=== PATIENT | male | born 1995 | race African-American/Black ===

== ENCOUNTER 2017-02-22 12:51 | Observation (INO) ==
[2017-02-22] MEDS ORDERED: methylPREDNISolone SOD SUC 125 MG/2 ML VIAL IV STA (13:54)
[2017-02-22] MEDS ORDERED: ALBUTEROL/IPRATROPIUM 3 ML NEB RESP TX STA (13:54)
[2017-02-22] MEDS ORDERED: methylPREDNISolone SOD SUC 125 MG/2 ML VIAL ONE (14:05)
[2017-02-22 14:11] LABS: Basophils % 0.1 % (0.0-0.8); Hematocrit 49.6 VOL% (42.0-52.0); Hemoglobin 16.4 GM/DL (14.0-18.0); Immature Granulocytes % 0.7 %; Lymphocytes # 0.9 10*3/uL (1.4-4.0); Lymphocytes % 6.5 % (21.2-54.2); Mean Corpuscular HGB Conc 33.1 GM/DL (32-36); Mean Corpuscular Hemoglobin 29 PG (27-34); Mean Corpuscular Volume 86.1 FL (87-102); Mean Platelet Volume 10.7 FL (9.6-12.0); Monocytes # 0.2 10*3/uL (0.11-0.8); Monocytes % 1.4 % (1.7-12.7); Neutrophils # 12.4 10*3/uL (1.4-7.4); Neutrophils % 91.3 % (38.7-73.9); Platelet Count 234 T/CUMM (130-400); Red Blood Count 5.76 MC/CUMM (3.8-5.5); Red Cell Distribution Width 13.8 % (9.3-17.3); White Blood Count 13.6 T/CUMM (4-12)
--- NOTE | 2017-02-22 14:23 | XRay Report ---
Portable chest. Indication: Shortness of breath. Dyspnea. Comparison: October 20, 2015. The heart is normal in size. The mediastinal contours are unremarkable. There are bilateral basilar infiltrates present, predominantly interstitial. No pneumothorax. No pleural effusion. No bony abnormality. Impression: Bilateral basilar interstitial infiltrates. PROCEDURE INTERPRETED AT [facility] DEPARTMENT OF RADIOLOGY Final Report Signed by: Dr. Arline Ingram
[2017-02-22 14:28] LABS: Osmolality,Calculated 277.4 MOS/KG (273-304)
[2017-02-22] MEDS ORDERED: cefTRIAXone 1,000 MG in SODIUM CHLORIDE 0.9% 100 ML IV STA (14:29)
--- NOTE | 2017-02-22 14:31 | Emergency Department Note ---
Arrival - Arrival Chief Complaint: Shortness of Breath Stated Complaint: Asthma Attack ED Nursing Triage Note: Cough and congestion with wheezing onset yesterday - pt states that he was seen last night and this am at [facility] and was given steroids and breathing tx - Mode of Arrival: Ambulatory Limitations: No Limitations Source: Patient Time Seen by Provider: 02/22/17 13:54 - History of Present Illness HPI Narrative: The patient complains of wheezing, cough and shortness of breath that started yesterday around 10:00. He was seen at [place] emergency room last night and given nebs and steroids. He improved but worsened again this morning and returned to [place] emergency room where he again received nebs and steroids. He improved again for short time but worsened again and presented here. He apparently got some prescriptions on 1 of the earlier visits but did not get them filled. He denies any fever, rhinorrhea, sore throat or other symptoms. He does have a history of asthma. Allergies/Adverse Reactions: Allergies Allergy/AdvReac Type Severity Reaction Status Date / Time No Known Allergies Allergy Verified 02/15/16 16:09 Home Medications: Home Medications Medication Instructions Recorded Confirmed Type Albuterol Sulfate [Albuterol 2 puffs IH Q4H PRN #1 hfa.aer.[email or web address] 06/28/15 02/15/16 Rx Inhaler] Albuterol Neb [Proventil Neb] 2.5 mg RESP TX Q6H PRN #30 neb 01/31/16 02/15/16 Rx Unable To Obtain 02/22/17 History Review of System - Review of System 12 point system: reviewed and no additional remarkable complaints except as stated - Review of System Constitutional: Absent: fever Head/Ears/Nose/Throat: Absent: nasal drainage, sore throat Respiratory: Present: cough (Clear sputum), respiratory distress, wheezing Cardiovascular: Absent: chest pain Gastrointestinal: Absent: abdominal pain, nausea, vomiting Medical,Surgical,& Family Hx - Medical History Cardio: No history of: Hypertension Psychological: History of: Anxiety Disorders, Depression, Schizophrenia No history of: Previous Suicide Attempt Neurology: History of: TIA Endocrine: No history of: Diabetes Mellitus (IDDM), Diabetes Mellitus (NIDDM) Respiratory: History of: Asthma Renal: No history of: Renal Problems Gastrointestinal: History of: GERD No history of: Gastrointestinal Bleed, Liver Problems, GI Problems Musculoskeletal: History of: Musculoskeletal Problems (Right hand fracture x2) - Surgical History HEENT Surgeries: Patient denies: Tonsilectomy & Adenoidectomy (Polyps removed from sinuses) Orthopedic Surgeries: Surgical HX of;: Orthopedic Surgery (Right hand) - Family History Family History: Reports;: Family Cancer (Grandma breast cancer), Family Heart Disease (father), Family Hypertension (father) - Social History Smoking Status: Smoker, status unknown Frequency of Alcohol Use: Occasionally Type of Drug Use: None Exam Physical Examination: GENERAL: Alert. No acute distress. HEENT: Normocephalic and atraumatic. There is no nasal drainage. No pharyngeal erythema or exudate. NECK: Normal inspection. Supple. No lymphadenopathy or meningismus. LUNGS: No respiratory distress. Decreased air movement with heavy wheezing bilaterally. HEART: Regular rate and rhythm. ABDOMEN: Soft, nontender and nondistended with normoactive bowel sounds. BACK: Normal inspection. SKIN: Color normal. Warm and dry. EXTREMITIES: Nontender. Normal range of motion. No pedal edema. NEUROLOGICAL/PSYCHIATRIC: Alert and oriented -3 with normal mood and affect. Cranial nerves normal. No motor or sensory deficit. Vital Signs: Vital Signs Temperature 99.2 F 02/22/17 14:18 Pulse Rate 105 H 02/22/17 14:18 Respiratory Rate 20 02/22/17 14:18 Blood Pressure 132/102 02/22/17 14:18 O2 Sat by Pulse Oximetry 92 L 02/22/17 13:21 Course - Reevaluation(s) Reevaluation #1: I have discussed the patient with the hospitalist service who will see him in the ER and admit. Time: 14:32 Results - Labs CBC & BMP: 02/22/17 13:54 02/22/17 13:54 Lab Results: I have reviewed the patients labs - Impressions Chest x-ray shows bibasilar interstitial infiltrates. Disposition Clinical Impression: Community acquired pneumonia, Asthma with exacerbation Case discussed with: patient Disposition: Still a Patient Condition: Stable Time of Disposition: 14:33
[2017-02-22 15:06] LABS: Lymphocytes 9 % (20-55); Platelet Estimate Adequate; Segmented Neutrophils 90 % (50-85)
[2017-02-22 15:07] LABS: Total Cells Counted 100
[2017-02-22] MEDS ORDERED: ACETAMINOPHEN 325 MG TABLET PO PRN (15:11)
[2017-02-22] MEDS ORDERED: ONDANSETRON 4 MG/2 ML VIAL IV PRN (15:11)
[2017-02-22] MEDS ORDERED: DOCUSATE SODIUM 100 MG CAPSULE PO PRN (15:11)
--- NOTE | 2017-02-22 15:12 | Hospitalist History & Physical ---
<Franky Vega - Last Filed: 02/22/17 15:20> Assessment and Plan (1) Acute severe exacerbation of asthma Status: Acute Assessment and plan: Admit patient. Breathing treatments. IV steroids. Supplemental O2. IV antibiotics (Azithromycin). Current Visit: No History of Present Illness History of present illness: Mr. Caballero is a 21 year old male with a history of asthma that presents to the ED today with complaints of shortness of breath and wheezing. Pt. states that he started having problems yesterday. This morning around 5 am he went to [place] emergency room where he received steroids and breathing treatments before he was released. He reported back to [place] again, received treatment and was released. Pt. reported here after having a third episode. Pt. denies fever, chills, chest pain or any other symptoms at this time. Pt. reports smoking cigarettes but denies drug or alcohol use/abuse. Pt. reports working at a [employer]. Pt. will be admitted to the hospitalist program for treatment. Home Medications Medication Instructions Recorded Confirmed Type Unable To Obtain 02/22/17 History Allergies Allergy/AdvReac Type Severity Reaction Status Date / Time No Known Allergies Allergy Verified 02/15/16 16:09 - Constitutional Constitutional: Absent: chills, fever(s) - EENT Eyes: Absent: blurry vision, loss of vision Nose, mouth and throat: Absent: dysphagia, headache(s) - Gastrointestinal Gastrointestinal: Absent: abdominal pain, nausea, vomiting - Genitourinary Genitourinary: Absent: difficulty urinating, hematuria - Musculoskeletal Musculoskeletal: Absent: back pain, limited range of motion - Neurological Neurological: Absent: confusion, frequent falls - Psychiatric Psychiatric: Present: anxiety. Absent: confusion - Endocrine Endocrine: Present: cold intolerance. Absent: polyuria - Hematologic/Lymphatic Hematologic/Lymphatic: Absent: easy bleeding, easy bruising Exam - Constitutional Vitals: Period Temp Pulse Resp BP Sys/Ozuna Pulse Ox Last 24 Hr 99.2 F-99.2 F 70-105 20-21 132-132/102-102 92 General appearance: normal weight, mild distress - Head Head exam: Present: normal inspection, normocephalic - Eye Eye exam: Present: EOMI. Absent: periorbital swelling Pupils: Present: KIM, normal accommodation - ENT ENT exam: Present: normal exam, normal external ear exam - Neck Neck exam: Present: normal inspection. Absent: thyromegaly - Respiratory Respiratory exam: Present: decreased breath sounds, wheezes - Cardiovascular Cardiovascular exam: Present: regular rate and rhythm. Absent: systolic murmur - GI/Abdominal GI/Abdominal exam: Present: normal bowel sounds. Absent: tenderness - Extremities Exam Extremities exam: Present: normal inspection, normal capillary refill - Neurological Exam Neurological exam: Present: alert, oriented X3 - Psychiatric Psychiatric exam: Present: normal affect, normal mood - Skin Skin exam: Present: normal color, warm, dry Results - Labs CBC & BMP: 02/22/17 13:54 02/22/17 13:54 Lab Results: I have reviewed the past 24 hour labs <Juana Ayers - Last Filed: 02/23/17 08:17> Assessment and Plan (1) Severe persistent asthma with acute exacerbation Status: Resolved Assessment and plan: singular, solumedrol, albuterol Current Visit: No (2) Acute bronchitis Status: Acute Assessment and plan: azithromycin IV Current Visit: No History of Present Illness Chief complaint: sob History of present illness: Mr. Caballero is a 21 year old male with a history of asthma reports wheezing, cough and shortness of breath that started yesterday around 10:00. He was seen at [place] emergency room twice then and release. Patient smokes and works at a [employer]. Medical,Surgical,& Family Hx - Medical History Cardio: No history of: Hypertension Psychological: History of: Anxiety Disorders, Depression, Schizophrenia No history of: Previous Suicide Attempt Neurology: History of: TIA Endocrine: No history of: Diabetes Mellitus (IDDM), Diabetes Mellitus (NIDDM) Respiratory: History of: Asthma Renal: No history of: Renal Problems Gastrointestinal: History of: GERD No history of: Gastrointestinal Bleed, Liver Problems, GI Problems Musculoskeletal: History of: Musculoskeletal Problems (Right hand fracture x2) - Surgical History HEENT Surgeries: Patient denies: Tonsilectomy & Adenoidectomy (Polyps removed from sinuses) Orthopedic Surgeries: Surgical HX of;: Orthopedic Surgery (Right hand) - Family History Family History: Reports;: Family Cancer (Grandma breast cancer), Family Heart Disease (father), Family Hypertension (father) - Social History Smoking Status: Smoker, status unknown Frequency of Alcohol Use: Occasionally Type of Drug Use: None Marital Status: Single Lives With:: Sibling Functional capacity: independent ambulation - Cardiovascular Cardiovascular: Present: dyspnea, dyspnea on exertion. Absent: chest pain at rest, chest pain with activity, edema - Respiratory Respiratory: Present: cough, dyspnea, dyspnea on exertion, wheezing Exam - Constitutional Vitals: Period Temp Pulse Resp BP Sys/Ozuna Pulse Ox Last 24 Hr 99.2 F-99.2 F 70-105 20-21 132-132/102-102 92 General appearance: normal weight, mild distress - Head Head exam: Present: normal inspection, normocephalic - Eye Eye exam: Present: EOMI. Absent: scleral icterus Pupils: Present: KIM, normal accommodation - ENT ENT exam: Present: normal exam, normal external ear exam - Neck Neck exam: Absent: lymphadenopathy, thyromegaly - Respiratory Respiratory exam: Present: decreased breath sounds, wheezes. Absent: rhonchi - Cardiovascular Cardiovascular exam: Present: regular rate and rhythm. Absent: systolic murmur - GI/Abdominal GI/Abdominal exam: Present: normal bowel sounds, soft. Absent: tenderness - Extremities Exam Extremities exam: Present: normal inspection, normal capillary refill - Neurological Exam Neurological exam: Present: alert, oriented X3, CN II-XII intact, reflexes normal. Absent: motor sensory deficit - Psychiatric Psychiatric exam: Present: normal affect, normal mood - Skin Skin exam: Present: normal color, warm Results - Labs CBC & BMP: 02/23/17 02:19 02/23/17 02:19 Lab Results: I have reviewed the past 24 hour labs - Diagnostic Findings Procedure: Chest x-ray: report reviewed by me (bilateral basilar infiltrate)
[2017-02-22] MEDS ORDERED: cefTRIAXone 1,000 MG VIAL ONE (15:28)
[2017-02-22] MEDS ORDERED: AZITHROMYCIN INJ 500 MG in SODIUM CHLORIDE 0.9% 250 ML IV SCH (15:30)
[2017-02-22] MEDS ORDERED: ALBUTEROL 1.25 MG/3 ML NEB RESP TX ONE (15:37)
[2017-02-22] MEDS ORDERED: ALBUTEROL 2.5 MG/3 ML NEB RESP TX SCH ×2 (17:00)
[2017-02-22] MEDS: NICOTINE 21 MG/24 HR PATCH TRANSDERM SCH (17:00)
[2017-02-22] MEDS ORDERED: ALBUTEROL 2.5 MG/3 ML NEB RESP TX PRN (17:02)
[2017-02-22] MEDS: ALBUTEROL 2.5 MG/3 ML NEB RESP TX SCH ×3 (19:07→23:35)
[2017-02-22] MEDS: SODIUM CHLORIDE 0.9% 1,000 ML IV SCH (19:39)
[2017-02-22] MEDS: methylPREDNISolone SOD SUC 125 MG/2 ML VIAL IV SCH (20:32)
[2017-02-22] MEDS: FLUTICASONE/SALMETEROL 500-50 DISKUS 14 DOSE INH SCH (20:33)
[2017-02-22] MEDS ORDERED: MONTELUKAST 10 MG TABLET PO SCH (21:00)
[2017-02-23] MEDS: methylPREDNISolone SOD SUC 125 MG/2 ML VIAL IV SCH ×2 (01:25→09:26)
[2017-02-23] MEDS: SODIUM CHLORIDE 0.9% 1,000 ML IV SCH (03:14)
[2017-02-23] MEDS: ALBUTEROL 2.5 MG/3 ML NEB RESP TX SCH ×3 (03:15→10:22)
[2017-02-23 04:30] LABS: Basophils % 0.1 % (0.0-0.8); Hemoglobin 13.7 GM/DL (14.0-18.0); Immature Granulocytes % 0.9 %; Immature Granulocytes Absolute 0.14 #; Lymphocytes # 1.1 10*3/uL (1.4-4.0); Lymphocytes % 6.4 % (21.2-54.2); Mean Corpuscular HGB Conc 32.6 GM/DL (32-36); Mean Corpuscular Hemoglobin 28 PG (27-34); Mean Corpuscular Volume 86.8 FL (87-102); Mean Platelet Volume 11.3 FL (9.6-12.0); Monocytes # 0.8 10*3/uL (0.11-0.8); Monocytes % 4.6 % (1.7-12.7); Neutrophils # 14.4 10*3/uL (1.4-7.4); Platelet Count 210 T/CUMM (130-400); Red Blood Count 4.84 MC/CUMM (3.8-5.5); Red Cell Distribution Width 14.1 % (9.3-17.3); White Blood Count 16.4 T/CUMM (4-12)
[2017-02-23 05:09] LABS: Calcium 8.7 MG/DL (8.5-10.1); Osmolality,Calculated 283.1 MOS/KG (273-304); Potassium 3.8 MMOL/L (3.5-5.1); Risk Ratio 1.56; Thyroid Stimulating Hormone 0.221 uIU/ml (0.358-3.74); VLDL CHOLESTEROL 3.8 MG/DL
[2017-02-23 08:00] VITALS: BP 134/52
--- NOTE | 2017-02-23 08:47 | Discharge Summary ---
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 The patient is a current smoker and reported that he had been seen twice in the emergency room at [place] and received breathing treatments and steroids was released. Chest x-ray performed showed bibasilar infiltrates, but clinically symptoms are more consistent with bronchitis. The patient was admitted to the hospitalist service for further evaluation and treatment. Patient was treated with breathing treatments, IV steroids (Solu-Medrol), and IV antibiotics (Azithromycin). Patient's vital signs are stable this a.m. patient elevated white blood count but this is quite possibly secondary to steroid usage. Patient counseled to stop smoking Patient will be released today and instructed to follow up with primary MD. Diagnosis - Discharge Diagnosis (1) Acute severe exacerbation of asthma Status: Acute Discharge Plan - Discharge Data Disposition: Disch To Home/Self Care - Discharge Medications New Albuterol Inhaler [Proventil Inhaler] 2 puff INH Q4H PRN #1 inhaler PRN Reason: Shortness Of Breath/Wheezing Azithromycin Tab [Zithromax Tab] 500 mg PO DAILY #10 tablet Fluticasone/Salmeterol 500-50 [Advair 500-50] 1 puff INH BID #1 puff Montelukast Tab [Singulair Tab] 10 mg PO DAILY #30 tablet predniSONE TAB [PredniSONE] 20 mg PO BID #40 tablet Albuterol Neb [Proventil Neb] 2.5 mg RESP TX RT Q4H #120 vial Discontinued Unable To Obtain - Follow Up or Referral Follow Up: pmd, [Other] - 1 Week - Forms/Instructions Exam - Constitutional Vitals: Period Temp Pulse Resp BP Sys/Ozuna Pulse Ox Last 24 Hr 97.4 F-99.2 F 70-116 17-30 113-175/52-102 92-100 Discharge Results Procedures and tests throughout hospitalization: Pending Orders 02/22/17 15:00 Blood Culture Stat 02/22/17 15:12 Urinalysis Stat Labs on day of discharge: Labs from last 24 hours 02/23/17 02/23/17 02/23/17 02:19 02:19 02:19 WBC 16.4 H RBC 4.84 Hgb 13.7 L D Hct 42.0 MCV 86.8 L MCH 28 MCHC 32.6 RDW 14.1 Plt Count 210 MPV 11.3 Neut % (Auto) 88.0 H Lymph % (Auto) 6.4 L [place] % (Auto) 4.6 Eos % (Auto) 0.0 Baso % (Auto) 0.1 Neut # (Auto) 14.4 H Lymph # (Auto) 1.1 L [place] # (Auto) 0.8 Eos # (Auto) 0.0 Baso # (Auto) 0.0 Total Counted Immature Gran % 0.9 Nucleated RBC % 0.0 Immature Gran # 0.14 Segmented Neutrophils Lymphocytes Monocytes Nucleated RBCs # 0.00 Platelet Estimate Sodium 142 Potassium 3.8 Chloride 107 Carbon Dioxide 23 Anion Gap 15.8 H BUN 12 Creatinine 0.90 GFR Calculation 143 BUN/Creatinine Ratio 13.00 Glucose 110 H Calculated Osmolality 283.1 Lactic Acid Calcium 8.7 Triglycerides 19 Cholesterol 97 LDL Cholesterol 35.0 VLDL Cholesterol 3.8 HDL Cholesterol 62 H Heart Disease Risk Ratio 1.56 Free T4 0.97 TSH 3rd Generation 0.221 L 02/22/17 02/22/17 02/22/17 15:00 13:54 13:54 WBC 13.6 H RBC 5.76 H Hgb 16.4 Hct 49.6 MCV 86.1 L MCH 29 MCHC 33.1 RDW 13.8 Plt Count 234 MPV 10.7 Neut % (Auto) 91.3 H Lymph % (Auto) 6.5 L [place] % (Auto) 1.4 L Eos % (Auto) 0.0 Baso % (Auto) 0.1 Neut # (Auto) 12.4 H Lymph # (Auto) 0.9 L [place] # (Auto) 0.2 Eos # (Auto) 0.0 Baso # (Auto) 0.0 Total Counted 100 Immature Gran % 0.7 Nucleated RBC % 0.0 Immature Gran # 0.10 Segmented Neutrophils 90 H Lymphocytes 9 L Monocytes 1 L Nucleated RBCs # 0.00 Platelet Estimate Adequate Sodium 140 Potassium 4.0 Chloride 106 Carbon Dioxide 22 Anion Gap 16.0 H BUN 8 Creatinine 1.10 GFR Calculation 113 BUN/Creatinine Ratio 7.00 Glucose 120 H Calculated Osmolality 277.4 Lactic Acid 3.9 H Calcium 10.0 Triglycerides Cholesterol LDL Cholesterol VLDL Cholesterol HDL Cholesterol Heart Disease Risk Ratio Free T4 TSH 3rd Generation DS: Provider Date of admission: 02/22/17 14:36 Primary care physician: . No PCP Attending physician on admission: Juana Ayers MD Discharging clinician: Franky Vega NP <Juana Ayers - Last Filed: 02/23/17 10:33> Hospital Course - Time spent with patient Time with patient DS: Less than 30 minutes (25 min) Diagnosis - Discharge Diagnosis (1) Severe persistent asthma with acute exacerbation Status: Resolved (2) Acute bronchitis Status: Acute Discharge Plan - Discharge Data Condition at Discharge: Stable Discharge Diet: regular diet Activity: resume usual activities as tolerated Hygiene: no restrictions Weight Bearing at Discharge: full weight bearing Driving: no restrictions - Forms/Instructions Additional Discharge Instructions: need to stop smoking for at least one week Exam - Constitutional General appearance: normal weight, no acute distress - Respiratory Respiratory exam: Present: clear to auscultation bilaterally. Absent: rhonchi, wheezes - Cardiovascular Cardiovascular exam: Present: regular rate and rhythm. Absent: systolic murmur - GI/Abdominal GI/Abdominal exam: Present: normal bowel sounds, soft. Absent: tenderness
[2017-02-23] MEDS ORDERED: PANTOPRAZOLE 40 MG TABLET PO SCH (09:00)
[2017-02-23] MEDS: FLUTICASONE/SALMETEROL 500-50 DISKUS 14 DOSE INH SCH (09:26)
[2017-02-23] MEDS: NICOTINE 21 MG/24 HR PATCH TRANSDERM SCH (09:26)
== END 2017-02-23 11:50 | disposition home or self-care (01) ==
LOC: N.ED 12:51 → INTOOBSV 14:36 → N.EDINP 14:36 → N.5E 16:49
PROVIDERS: ADMIT Internal Medicine; ATTEND Internal Medicine

== ENCOUNTER 2017-09-17 21:51 | Observation (INO) ==
[2017-09-17] MEDS ORDERED: LEVOFLOXACIN INJ 750 MG in PREMIX 1 EACH IV STA (22:45)
[2017-09-17] MEDS ORDERED: MAGNESIUM SULF RIDER 2 GM in PREMIX 1 EACH IV STA (22:45)
[2017-09-17] MEDS ORDERED: methylPREDNISolone SOD SUC 125 MG/2 ML VIAL IV STA (22:45)
[2017-09-17] MEDS ORDERED: ALBUTEROL 2.5 MG/3 ML NEB RESP TX SCH (23:00)
[2017-09-17 23:10] LABS: Basophils % 0.6 % (0.0-0.8); Eosinophils # 0.6 10*3/uL (0.0-0.87); Hematocrit 43.8 VOL% (42.0-52.0); Hemoglobin 14.1 GM/DL (14.0-18.0); Immature Granulocytes % 0.3 %; Immature Granulocytes Absolute 0.02 #; Lymphocytes % 44.4 % (21.2-54.2); Mean Corpuscular HGB Conc 32.2 GM/DL (32-36); Mean Corpuscular Hemoglobin 29 PG (27-34); Mean Corpuscular Volume 88.5 FL (87-102); Mean Platelet Volume 11.5 FL (9.6-12.0); Monocytes # 0.6 10*3/uL (0.11-0.8); Monocytes % 8.2 % (1.7-12.7); Neutrophils # 2.6 10*3/uL (1.4-7.4); Neutrophils % 37.5 % (38.7-73.9); Platelet Count 207 T/CUMM (130-400); Red Blood Count 4.95 MC/CUMM (3.8-5.5); Red Cell Distribution Width 13.5 % (9.3-17.3); White Blood Count 6.8 T/CUMM (4-12)
[2017-09-17 23:30] LABS: Alanine Aminotransferase 22 U/L (16-61); Alkaline Phosphatase 45 U/L (45-117); Aspartate Amino Transferase 14 U/L (0-37); Bilirubin,Total < 0.39 MG/DL (0.2-1.0); Blood Urea Nitrogen 19 MG/DL (7-18); Calcium 8.8 MG/DL (8.5-10.1); Glucose 86 MG/DL (74-106); Osmolality,Calculated 283.1 MOS/KG (273-304); Potassium 3.7 MMOL/L (3.5-5.1); Sodium 142 MMOL/L (136-145)
[2017-09-17 23:43] LABS: Eosinophils 3 % (0-10); Lymphocytes 47 % (20-55); Segmented Neutrophils 38 % (50-85)
[2017-09-17 23:45] LABS: Platelet Estimate Normal; Total Cells Counted 100
[2017-09-17] MEDS ORDERED: LEVOFLOXACIN INJ 150 ML IV ONE (23:50)
[2017-09-17] MEDS ORDERED: methylPREDNISolone SOD SUC 125 MG/2 ML VIAL ONE (23:50)
[2017-09-17 23:53] LABS: Reactive Lymphocytes 2+
[2017-09-18] MEDS ORDERED: MAGNESIUM SULF RIDER 50 ML IV ONE (00:04)
[2017-09-18] MEDS ORDERED: ALBUTEROL 2.5 MG/3 ML NEB RESP TX PRN (00:52)
[2017-09-18] MEDS ORDERED: ACETAMINOPHEN 325 MG TABLET PO PRN (00:56)
[2017-09-18] MEDS ORDERED: ONDANSETRON 4 MG/2 ML VIAL IV PRN (00:56)
[2017-09-18] MEDS ORDERED: ALBUTEROL 2.5 MG/3 ML NEB RESP TX ONE (03:00)
[2017-09-18] MEDS: ALBUTEROL 2.5 MG/3 ML NEB RESP TX SCH ×3 (03:04→11:23)
[2017-09-18 06:09] LABS: Basophils % 0.1 % (0.0-0.8); Eosinophils % 0.2 % (0.00-10.9); Hematocrit 43.5 VOL% (42.0-52.0); Hemoglobin 14.1 GM/DL (14.0-18.0); Immature Granulocytes % 0.2 %; Immature Granulocytes Absolute 0.02 #; Lymphocytes # 0.6 10*3/uL (1.4-4.0); Lymphocytes % 6.4 % (21.2-54.2); Mean Corpuscular HGB Conc 32.4 GM/DL (32-36); Mean Corpuscular Hemoglobin 29 PG (27-34); Mean Corpuscular Volume 88.2 FL (87-102); Monocytes # 0.1 10*3/uL (0.11-0.8); Monocytes % 1.5 % (1.7-12.7); Neutrophils % 91.6 % (38.7-73.9); Platelet Count 206 T/CUMM (130-400); Red Blood Count 4.93 MC/CUMM (3.8-5.5); Red Cell Distribution Width 13.3 % (9.3-17.3); White Blood Count 8.7 T/CUMM (4-12)
[2017-09-18 06:46] LABS: Calcium 8.8 MG/DL (8.5-10.1); Osmolality,Calculated 278.5 MOS/KG (273-304); Potassium 4.1 MMOL/L (3.5-5.1)
[2017-09-18 07:03] LABS: Eosinophils 1 % (0-10); Hypochromasia 1+; Lymphocytes 5 % (20-55); Platelet Estimate Normal; Segmented Neutrophils 90 % (50-85); Total Cells Counted 100
[2017-09-18 07:38] VITALS: BP 148/66
[2017-09-18] MEDS ORDERED: predniSONE 20 MG TABLET PO SCH (09:00)
[2017-09-18] MEDS ORDERED: ENOXAPARIN 40 MG/0.4 ML SYRINGE SUBCUT SCH (09:00)
[2017-09-18] MEDS ORDERED: MONTELUKAST 10 MG TABLET PO SCH (09:30)
[2017-09-18] MEDS ORDERED: BUDESONIDE/FORMOTEROL 160-4.5 INHALER 6 GM INH SCH (09:30)
== END 2017-09-18 12:21 | disposition home or self-care (01) ==
LOC: N.EDINP 21:51 → N.ED 21:51 → N.2E 09-18 04:25
PROVIDERS: ADMIT Internal Medicine; ATTEND Internal Medicine

== ENCOUNTER 2019-08-21 18:28 | Inpatient (IN) ==
[2019-08-21] MEDS ORDERED: ALBUTEROL/IPRATROPIUM 3 ML NEB RESP TX STA ×2 (19:29→20:27)
[2019-08-21] MEDS ORDERED: methylPREDNISolone SOD SUC 125 MG/2 ML VIAL IV STA (19:29)
[2019-08-21 19:46] LABS: Basophils % 0.1 % (0.0-0.8); Hemoglobin 15.4 GM/DL (14.0-18.0); Immature Granulocytes % 0.3 %; Immature Granulocytes Absolute 0.03 #; Lymphocytes # 0.5 10*3/uL (1.4-4.0); Lymphocytes % 5.9 % (21.2-54.2); Mean Corpuscular HGB Conc 32.1 GM/DL (32-36); Mean Corpuscular Volume 88.2 FL (87-102); Mean Platelet Volume 10.5 FL (9.6-12.0); Monocytes % 3.1 % (1.7-12.7); Neutrophils % 90.6 % (38.7-73.9); Platelet Count 216 T/CUMM (130-400); Red Blood Count 5.44 MC/CUMM (3.8-5.5); Red Cell Distribution Width 13.2 % (9.3-17.3); White Blood Count 9.1 T/CUMM (4-12)
[2019-08-21 20:14] LABS: Albumin 4.3 G/DL (3.4-5.0); Bilirubin,Total 0.4 MG/DL (0.2-1.0); Calcium 9.2 MG/DL (8.5-10.1); Osmolality,Calculated 282.4 MOS/KG (273-304)
[2019-08-21 20:17] LABS: Lymphocytes 6 % (20-55); Platelet Estimate Adequate; Segmented Neutrophils 86 % (50-85); Total Cells Counted 100
[2019-08-21] MEDS ORDERED: ALBUTEROL 2.5 MG/3 ML NEB RESP TX PRN (21:02)
[2019-08-21] MEDS ORDERED: MAGNESIUM SULF RIDER 2 GM in PREMIX 1 EACH IV ONE (21:02)
[2019-08-21] MEDS ORDERED: MAGNESIUM SULF RIDER 2 GM in PREMIX 1 EACH IV PRN (22:01)
[2019-08-21] MEDS ORDERED: MAGNESIUM SULF RIDER 4 GM in PREMIX 1 EACH IV PRN (22:01)
[2019-08-21] MEDS ORDERED: POTASSIUM CHLORIDE 20 MEQ TABLET PO PRN (22:01)
[2019-08-21] MEDS: MONTELUKAST 10 MG TABLET PO SCH (22:30)
[2019-08-21] MEDS ORDERED: DOCUSATE SODIUM 100 MG CAPSULE PO PRN (23:41)
[2019-08-21] MEDS ORDERED: ONDANSETRON 4 MG/2 ML VIAL IV PRN (23:41)
[2019-08-21] MEDS ORDERED: ACETAMINOPHEN 325 MG TABLET PO PRN (23:41)
[2019-08-22] MEDS: ALBUTEROL 2.5 MG/3 ML NEB RESP TX SCH ×6 (00:05→20:39)
[2019-08-22 04:08] LABS: Basophils % 0.1 % (0.0-0.8); Hematocrit 45.6 VOL% (42.0-52.0); Hemoglobin 14.8 GM/DL (14.0-18.0); Immature Granulocytes % 0.5 %; Immature Granulocytes Absolute 0.07 #; Lymphocytes # 1.2 10*3/uL (1.4-4.0); Lymphocytes % 8.2 % (21.2-54.2); Mean Corpuscular HGB Conc 32.5 GM/DL (32-36); Mean Corpuscular Volume 88.2 FL (87-102); Mean Platelet Volume 10.9 FL (9.6-12.0); Neutrophils % 85.2 % (38.7-73.9); Platelet Count 211 T/CUMM (130-400); Red Blood Count 5.17 MC/CUMM (3.8-5.5); Red Cell Distribution Width 13.2 % (9.3-17.3); White Blood Count 15.1 T/CUMM (4-12)
[2019-08-22 04:25] LABS: Calcium 8.7 MG/DL (8.5-10.1); Osmolality,Calculated 283.1 MOS/KG (273-304)
[2019-08-22] MEDS: methylPREDNISolone SOD SUC 125 MG/2 ML VIAL IV SCH ×2 (06:05→17:09)
[2019-08-22] MEDS: ENOXAPARIN 40 MG/0.4 ML SYRINGE SUBCUT SCH (09:34)
[2019-08-22] MEDS: LEVOFLOXACIN INJ 750 MG in PREMIX 1 EACH IV SCH (17:11)
[2019-08-22] MEDS: MONTELUKAST 10 MG TABLET PO SCH (20:27)
[2019-08-23] MEDS: ALBUTEROL 2.5 MG/3 ML NEB RESP TX SCH ×3 (00:35→07:59)
[2019-08-23 05:10] LABS: Basophils % 0.1 % (0.0-0.8); Hematocrit 45.5 VOL% (42.0-52.0); Hemoglobin 14.5 GM/DL (14.0-18.0); Immature Granulocytes % 0.6 %; Immature Granulocytes Absolute 0.09 #; Lymphocytes # 1.4 10*3/uL (1.4-4.0); Lymphocytes % 9.6 % (21.2-54.2); Mean Corpuscular HGB Conc 31.9 GM/DL (32-36); Mean Corpuscular Volume 89.6 FL (87-102); Mean Platelet Volume 10.9 FL (9.6-12.0); Neutrophils % 79.7 % (38.7-73.9); Platelet Count 216 T/CUMM (130-400); Red Blood Count 5.08 MC/CUMM (3.8-5.5); Red Cell Distribution Width 13.4 % (9.3-17.3)
[2019-08-23 05:42] LABS: Calcium 8.6 MG/DL (8.5-10.1)
[2019-08-23] MEDS: methylPREDNISolone SOD SUC 125 MG/2 ML VIAL IV SCH (06:22)
[2019-08-23 08:26] VITALS: BP 139/67
[2019-08-23] MEDS: LEVOFLOXACIN INJ 750 MG in PREMIX 1 EACH IV SCH (08:42)
[2019-08-23] MEDS: ENOXAPARIN 40 MG/0.4 ML SYRINGE SUBCUT SCH (08:43)
== END 2019-08-23 11:10 | disposition home or self-care (01) | DRG 203 ==
LOC: EDBD → EDUNIT# → N.ED 18:28 → N.EDINP 18:28 → N.2W 21:28 → N.2E 08-22 13:48
PROVIDERS: ADMIT Internal Medicine; ATTEND Internal Medicine